=== PATIENT | female | born 1960 | race Caucasian/White ===

== ENCOUNTER 2017-08-28 15:32 | Emergency (ER) | payer MEDICAID ==
[~2017-08-28] VITALS: Ht 152.4 cm; Wt 62.4 kg
[2017-08-28 15:34] VITALS: BP 150/96
[2017-08-28] MEDS ORDERED: HYDROcodone/APAP 5/325 TABLET ONE (17:29)
[2017-08-28] MEDS ORDERED: HYDROcodone/APAP 5/325 TABLET PO ONE (17:30)
== END 2017-08-28 18:19 | disposition home or self-care (01) ==
LOC: ED 18:10
DX: S82.425A Nondisplaced transverse fracture of shaft of left fibula, initial encounter for closed fracture (principal); W18.30XA Fall on same level, unspecified, initial encounter; Y93.89 Activity, other specified; Y92.89 Other specified places as the place of occurrence of the external cause; Y99.8 Other external cause status
CPT/HCPCS: 29515; 99284

== ENCOUNTER 2018-02-19 09:31 | Emergency (ER) | payer MEDICAID ==
[~2018-02-19] VITALS: Ht 152.4 cm; Wt 57.3 kg
[2018-02-19 10:17] LABS: ALBUMIN 3.7 g/dL (3.4-5.0); ANION GAP 6 mmol/L (5-15); CALCIUM 8.8 mg/dL (8.5-10.1); CHLORIDE 105 mmol/L (98-107); CREATININE 0.94 mg/dL (0.55-1.02)
[2018-02-19 10:21] LABS: MEAN CORPUSCULAR HEMOGLOBIN 26.7 pg (27.0-34.8); MEAN CORPUSCULAR VOLUME 83.4 fL (80-100); MEAN PLATELET VOLUME 12.6 fL (7.4-10.4); PLATELET COUNT 172 x10^3/uL (130-400); RED BLOOD COUNT 5.45 x10^6/uL (3.82-5.3); RED CELL DISTRIBUTION WIDTH 15.3 % (9.6-15.2)
[2018-02-19 10:22] LABS: MD YES
[2018-02-19 10:23] LABS: LYMPH#(MANUAL) 3.02 x10^3/uL (1-3.4); LYMPHS% (MANUAL) 28 % (22-44); MONOS#(MANUAL) 0.97 x10^3/uL (0.3-2.7); MONOS% (MANUAL) 9 % (2-9); REACTIVE LYMPHS # (MANUAL) 0.22 x10^3/uL (0-0); REACTIVE LYMPHS % (MANUAL) 2 % (0-0); SEG#(MANUAL) 6.59 x10^3/uL (1.8-6.8); SEGS% (MANUAL) 61 % (42-75)
[2018-02-19 10:24] LABS: <PLATELET ESTIMATE> ADEQUATE; ANISOCYTOSIS 1+; LARGE PLATELETS 1+; OVALOCYTES 1+
[2018-02-19 10:25] LABS: TROPONIN I < 0.015 ng/mL (0.000-0.045)
[2018-02-19] MEDS ORDERED: IBUPROFEN 200 MG TABLET ONE (11:04)
[2018-02-19] MEDS ORDERED: HYDROcodone/APAP 5/325 TABLET ONE (11:04)
[2018-02-19] MEDS ORDERED: IBUPROFEN 200 MG TABLET PO ONE (11:30)
[2018-02-19] MEDS ORDERED: HYDROcodone/APAP 5/325 TABLET PO ONE (11:30)
[2018-02-19 12:03] VITALS: BP 144/67
== END 2018-02-19 12:05 | disposition home or self-care (01) ==
LOC: ED 11:59
DX: S92.321A Displaced fracture of second metatarsal bone, right foot, initial encounter for closed fracture (principal); S92.331A Displaced fracture of third metatarsal bone, right foot, initial encounter for closed fracture; S92.341A Displaced fracture of fourth metatarsal bone, right foot, initial encounter for closed fracture; R55 Syncope and collapse; Z88.1 Allergy status to other antibiotic agents; Z88.5 Allergy status to narcotic agent; Z88.8 Allergy status to other drugs, medicaments and biological substances; W18.39XA Other fall on same level, initial encounter; Y93.01 Activity, walking, marching and hiking; Y92.090 Kitchen in other non-institutional residence as the place of occurrence of the external cause; Y99.8 Other external cause status
CPT/HCPCS: 36415; 71045; 80048; 82040; 84484; 85025; 93005; 99285

== ENCOUNTER → 2018-02-22 | Outpatient (CLI) | payer MEDICAID | END | disposition home or self-care (01) | LOC: CFH 10:27 | PROVIDERS: ATTEND Physician Assistant | DX: S92.331A Displaced fracture of third metatarsal bone, right foot, initial encounter for closed fracture (principal); S92.321A Displaced fracture of second metatarsal bone, right foot, initial encounter for closed fracture; X58.XXXA Exposure to other specified factors, initial encounter; Y93.89 Activity, other specified; Y92.89 Other specified places as the place of occurrence of the external cause; Y99.8 Other external cause status ==

== ENCOUNTER 2020-08-10 10:34 | Day surgery (SDC) | payer MEDICARE, MEDICAID ==
[~2020-08-10] VITALS: Ht 152.4 cm; Wt 61.2 kg
[~2020-08-10 10:34] MED LIST: BUPIVACAINE/PF 0.25% ONE; BUPIVACAINE/PF 0.5% ONE; LIDOCAINE/PF 1%, 30ML ONE; ONDANSETRON 2MG/ML, 2ML ONE; PROPOFOL 10 MG/ML, 20ML ONE
[2020-08-10] MEDS ORDERED: CHLORHEXIDINE 15 ML UDC ONE (11:11)
[2020-08-10] MEDS ORDERED: BUSPIRONE PO (11:28)
[2020-08-10] MEDS ORDERED: PROPRANOLOL PO (11:28)
[2020-08-10] MEDS ORDERED: ACYCLOVIR PO (11:28)
[2020-08-10] MEDS ORDERED: OMEPRAZOLE PO (11:28)
[2020-08-10] MEDS ORDERED: SEROQUEL PO (11:28)
[2020-08-10] MEDS ORDERED: CHLORHEXIDINE 15 ML UDC MM ONE (11:30)
[2020-08-10] MEDS ORDERED: LACTATED RINGERS 1,000 ML IV SCH (11:30)
[2020-08-10 11:31] VITALS: BP 156/95
[2020-08-10 12:00] LABS: ALBUMIN 3.9 g/dL (3.4-5.0); ANION GAP 5 mmol/L (5-15); CHLORIDE 110 mmol/L (98-107)
[2020-08-10 12:07] LABS: BILIRUBIN,TOTAL 0.4 mg/dL (0.2-1.0)
[2020-08-10 12:08] LABS: ALANINE AMINOTRANSFERASE 17 U/L (12-78); ALKALINE PHOSPHATASE 90 U/L (45-117); TOTAL PROTEIN 7.9 g/dL (6.4-8.2)
[2020-08-10] MEDS ORDERED: PROMETHAZINE 25 MG/ML, 1ML IVPush PRN (12:30)
[2020-08-10] MEDS ORDERED: ACETAMINOPHEN 325 MG TABLET PO PRN (12:30)
[2020-08-10] MEDS ORDERED: ONDANSETRON 2MG/ML, 2ML IVPush PRN (12:30)
[2020-08-10] MEDS ORDERED: FENTANYL PF 100 MCG/2ML IV PRN (12:30)
[2020-08-10] MEDS ORDERED: FENTANYL PF 100 MCG/2ML ONE (12:41)
== END 2020-08-10 14:30 | disposition home or self-care (01) ==
LOC: OUT 10:34
PROVIDERS: ATTEND Surgery Surgery of the Hand
DX: M65.312 Trigger thumb, left thumb (principal); I10 Essential (primary) hypertension; M79.7 Fibromyalgia; M81.0 Age-related osteoporosis without current pathological fracture; K75.9 Inflammatory liver disease, unspecified; M19.90 Unspecified osteoarthritis, unspecified site; Z79.891 Long term (current) use of opiate analgesic; Z79.899 Other long term (current) drug therapy; Z87.891 Personal history of nicotine dependence; Z88.5 Allergy status to narcotic agent; Z88.8 Allergy status to other drugs, medicaments and biological substances; Z82.61 Family history of arthritis; Z82.3 Family history of stroke
CPT/HCPCS: 26055; 36415; 80053; 87635; J2405; J2704; J3010; J7120